=== PATIENT | female | born 1990 ===

== ENCOUNTER 2021-12-24 03:33 | Emergency (ER) | payer OTHER ==
[2021-12-24] MEDS ORDERED: ACETAMINOPHEN 325 MG TAB PO ONE (04:05)
[2021-12-24 04:28] VITALS: BP 140/89
[2021-12-24 04:41] LABS: Bacteria,Urine 1+ /HPF (Negative)
[2021-12-24 05:02] LABS: Bilirubin,Urine Negative (Negative); Color,Urine Yellow (Yellow)
[2021-12-24 05:03] LABS: Blood,Urine Trace (Negative)
[2021-12-24 06:00] LABS: Basophils % (Auto) 0.2 % (0.0-1.8); Eosinophils # (Auto) 0.1 K/mm3 (0.0-0.4); Hematocrit 41.6 % (30.3-42.9); Hemoglobin 13.2 gm/dl (10.1-14.3); Lymphocytes # (Auto) 3.2 K/mm3 (1.2-5.4); Lymphocytes % (Auto) 31.8 % (13.4-35.0); Mean Corpuscular HGB Conc 32 % (30-34); Mean Corpuscular Volume 87 fl (79-97); Monocytes # (Auto) 0.5 K/mm3 (0.0-0.8); Monocytes % (Auto) 4.5 % (0.0-7.3); Platelet Count 343 K/mm3 (140-440); Red Blood Count 4.79 M/mm3 (3.65-5.03); Red Cell Distribution Width 13.4 % (13.2-15.2)
--- NOTE | 2021-12-24 08:59 | Ultrasound Report ---
ULTRASOUND OBSTETRIC REASON FOR EXAM: vag bleed recent pos preg TECHNIQUE: Transabdominal and transvaginal ultrasound was performed to evaluate a first trimester pre gnancy. COMPARISON: None available. FINDINGS: FINDINGS: No intrauterine is visualized. No suspicious adnexal mass is visualized. MATERNAL FINDINGS: Uterus: The uterus demonstrates a normal sonographic appearance. The uterus measures 0.5 cm. Right ovary: The right ovary measures 1.9 x 1.2 x 1.6 cm. The right ovary demonstrates a normal sonog raphic appearance and normal doppler flow. Left ovary: The left ovary measures 2.3 x 2.1 x 2.3 cm. The left ovary demonstrates a normal sonograp hic appearance and normal doppler flow. Cul-de-sac: There is no free fluid. IMPRESSION: No IUP identified. Recommend correlation with beta hCG. Signer Name: Catarino Murray MD Signed: 12/24/2021 8:54 AM Workstation Name: [id number]
--- NOTE | 2021-12-24 09:06 | Emergency Department Report ---
ED Female HPI - General Chief complaint: Vaginal Bleeding Stated complaint: 10WKS PREG/ABD PAIN/BLEEDING Time Seen by Provider: 12/24/21 07:37 Source: patient, EMS Mode of arrival: Stretcher Limitations: No Limitations - History of Present Illness Initial comments: Patient is a 31-year-old female that comes to the emergency room complaining of vaginal bleeding during . She states that she had a positive home test in November. She states her last menstrual period was 423. Last night she had 1 episode of bleeding. She was concerned for miscarriage so she comes to the ER. She denies pain. She has had no further bleeding. She denies passing any tissue. This is patient's sixth and she has 2 living children. MD Complaint: vaginal bleeding -: Sudden, hour(s) Severity scale (0 -10): 0 Consistency: intermittent Improves with: none Are you Now?: Yes Associated Symptoms: denies other symptoms - Related Data Sexually active: Yes : 6 Para: 2 A: 3 Allergies Allergy/AdvReac Type Severity Reaction Status Date / Time No Known Allergies Allergy Unverified 12/24/21 04:04 ED Review of Systems ROS: Stated complaint: 10WKS PREG/ABD PAIN/BLEEDING Other details as noted in HPI Comment: All other systems reviewed and negative ED Past Medical Hx - Past Medical History Previous Medical History?: No - Surgical History Past Surgical History?: Yes Hx Appendectomy: Yes Additional Surgical History: . Back Surgery - Family History Family history: no significant - Social History Smoking Status: Never Smoker Substance Use Type: None ED Physical Exam - General Limitations: No Limitations General appearance: alert, in no apparent distress - Head Head exam: Present: atraumatic, normocephalic - Eye Eye exam: Present: normal appearance - ENT ENT exam: Present: mucous membranes moist - Neck Neck exam: Present: normal inspection - Respiratory Respiratory exam: Present: normal lung sounds bilaterally. Absent: respiratory distress - Cardiovascular Cardiovascular Exam: Present: regular rate, normal rhythm. Absent: systolic mur mur, diastolic murmur, rubs, gallop - GI/Abdominal GI/Abdominal exam: Present: soft, normal bowel sounds - Extremities Exam Extremities exam: Present: normal inspection - Back Exam Back exam: Present: normal inspection - Neurological Exam Neurological exam: Present: alert, oriented X3 - Psychiatric Psychiatric exam: Present: normal affect, normal mood - Skin Skin exam: Present: warm, dry, intact, normal color. Absent: rash ED Course Vital Signs 12/24/21 12/24/21 04:18 04:27 Temperature 98 F 98.1 F Pulse Rate 97 H 97 H Respiratory 18 16 Rate Blood Pressure 121/78 140/89 O2 Sat by Pulse 100 98 Oximetry ED Medical Decision Making - Lab Data Result diagrams: 12/24/21 05:30 - Radiology Data Radiology results: report reviewed, image reviewed NO IUP - Medical Decision Making Labs 12/24/21 12/24/21 12/24/21 04:04 05:30 05:30 WBC 10.0 RBC 4.79 Hgb 13.2 Hct 41.6 MCV 87 MCH 28 MCHC 32 RDW 13.4 Plt Count 343 Lymph % (Auto) 31.8 Hernando % (Auto) 4.5 Eos % (Auto) 1.0 Baso % (Auto) 0.2 Lymph # (Auto) 3.2 Hernando # (Auto) 0.5 Eos # (Auto) 0.1 Baso # (Auto) 0.0 Seg Neutrophils % 62.5 Seg Neutrophils # 6.2 HCG, Quant < 2 Urine Color Yellow Urine Turbidity Slightly cloudy Urine pH 7.0 Ur Specific Jerome 1.010 Urine Protein 30 mg/dl Urine Glucose (UA) Negative Urine Ketones Negative Urine Blood Trace Urine Nitrite Negative Ur Reducing Substances Not Reportable Urine Bilirubin Negative Urine Ictotest Not Reportable Urine Urobilinogen 0.0 Ur Leukocyte Esterase Negative Urine WBC (Auto) 2.0 Urine RBC (Auto) 2.0 U Epithel Cells (Auto) 2.0 Urine Bacteria (Auto) 1+ Blood Type 12/24/21 05:30 WBC RBC Hgb Hct MCV MCH MCHC RDW Plt Count Lymph % (Auto) Hernando % (Auto) Eos % (Auto) Baso % (Auto) Lymph # (Auto) Hernando # (Auto) Eos # (Auto) Baso # (Auto) Seg Neutrophils % Seg Neutrophils # HCG, Quant Urine Color Urine Turbidity Urine pH Ur Specific Jerome Urine Protein Urine Glucose (UA) Urine Ketones Urine Blood Urine Nitrite Ur Reducing Substances Urine Bilirubin Urine Ictotest Urine Urobilinogen Ur Leukocyte Esterase Urine WBC (Auto) Urine RBC (Auto) U Epithel Cells (Auto) Urine Bacteria (Auto) Blood Type A POSITIVE Vital Signs 12/24/21 12/24/21 04:18 04:27 Temperature 98 F 98.1 F Pulse Rate 97 H 97 H Respiratory 18 16 Rate Blood Pressure 121/78 140/89 O2 Sat by Pulse 100 98 Oximetry LABS NOTED APOS US NOTED On discharge exam patient is ambulatory, taking p.o. and in no acute distress. Discharge plan of care including diet, activity, medications and follow-up. Patient verbalizes understanding of plan of care. Referral to [facility] has been connor cabrales - Differential Diagnosis RO AB/ECTOPTIC Critical care attestation.: If time is entered above; I have spent that time in minutes in the direct care of this critically ill patient, excluding procedure time. ED Disposition Clinical Impression: Vaginal bleeding Disposition: HOME / SELF CARE / HOMELESS Is pt being admited?: No Does the pt Need Aspirin: No Condition: Stable Instructions: Abnormal Uterine Bleeding Additional Instructions: Follow-up with [facility]. Have given you referral below. Motrin or Tylenol for pain. Safe sex. Diet and activity as tolerated Referrals: PRIMARY CARE, [Primary Care Provider] - 3-5 Days MINA VALLADARES MD [Staff Physician] - 3-5 Days Forms: Work/School Release Form(ED) Time of Disposition: 09:05
== END 2021-12-24 09:27 | disposition home or self-care (01) ==
LOC: ED 03:33
DX: O20.9 Hemorrhage in early pregnancy, unspecified (principal); Z3A.10 10 weeks gestation of pregnancy; Z90.89 Acquired absence of other organs; Z98.890 Other specified postprocedural states
CPT/HCPCS: 36415; 76856; 81001; 84702; 85025; 86900; 86901; 99284